=== PATIENT | female | born 1980 | race Caucasian/White ===

== ENCOUNTER 2016-09-15 18:30 | Emergency (ER) | payer OTHER ==
[~2016-09-15] VITALS: Ht 167.6 cm; Wt 113.0 kg
[~2016-09-15 18:30] MED LIST: AMOX-366 PO; AZIT250T4 PO; CITA10TA9 PO; HYDR-3090 PO; HYDR-4003 PO; IBUP800T28 PO; MELO-259 PO; NAPR500T PO; ONDA8TAB10 PO
[2016-09-15 18:32] VITALS: BP 129/91; PULSE 93; RESP 20; O2SAT 99
--- NOTE | 2016-09-15 19:02 | ED.REPORT ---
HPI-URI / Cough / Cold Date of Service Sep 15, 2016 ED Provider: Otherwise healthy 35-year-old female presents with a 2 day history of sore throat, fever, myalgia. Denies cough, wheeze, shortness of breath, abdominal pain, vomiting. Treating herself with Tylenol. History of strep throat. Nursing Notes Stated Complaint: SORE THROAT Chief Complaint: FLU/Cold Symptoms Nursing Notes Reviewed: Yes Allergies: Coded Allergies: No Known Allergies (Verified Allergy, Unknown, 11/16/15) Scheduled Amoxicillin/Clav K 875-125 mg (Augmentin 875-125 mg) 1 Each Tablet 1 TABLET PO BID Azithromycin (Zithromax (Z-Dangelo)) 250 Mg Tablet 250 MG PO DAILY 2 now, then one daily for 4 more days Citalopram (Citalopram) 10 Mg Tablet 10 MG PO DAILY Meloxicam (Meloxicam) 7.5 Mg Tablet 7.5 MG PO DAILY Penicillin V Potassium (Penicillin V Potassium) 500 Mg Tablet 500 MG PO BID Scheduled PRN Hydrocodone-Acetaminophen 5-300 mg (Hydrocodone-Acetaminophen 5-300 mg) 1 Each Tablet 1 TABLET PO Q4H PRN PRN For Cough Hydrocodone-Acetaminophen 5-325 mg (Hydrocodone-Acetaminophen 5-325 mg) 1 Each Tablet 1-2 TABLET PO Q4H PRN PRN For Pain Ibuprofen (Ibuprofen) 800 Mg Tablet 800 MG PO TID PRN PRN For Pain Naproxen (Naprosyn) 500 Mg Tablet 500 MG PO BID PRN PRN For Pain Ondansetron ODT (Ondansetron ODT) 8 Mg Tab.rapdis 8 MG PO Q4H PRN PRN na General Time Seen by MD: 18:55 Chief Complaint Sore throat Past Medical History Past Medical History Colitis Cervical erosion Back/hip problems osteoarthritis Anxiety, ADHD Reports: Asthma Past Surgical History Knee surgery LEEP procedure Smoking History Current Every Day Smoker Social History Mother Alcohol Use: Denies alcohol use Drug Use: Denies drug use, THC Other Social History: Good social support, Lives with children Ambulatory Status Independent Review of Systems Negative unless stated otherwise in history of present illness Physical Exam General: Well appearing, well developed, well nourished, no acute distress. Head: Atraumatic, normocephalic. No mastoid tenderness. Eyes: No scleral icterus or injection. No discharge. PERRL. Vision grossly intact. Ears: Pinna and tragus nontender with manipulation. External auditory canal patent, atraumatic and without discharge. Tympanic membrane castrejon, shiny and translucent without fluid, bulging, retraction or perforation. Hearing grossly intact. Nose: Symmetrical, nares patent without discharge. No frontal or maxillary sinus tenderness. Mouth/pharynx: normal dentition, mucus membranes moist. Tonsils 2+ and symmetrical with exudate, uvula midline. Pharynx injected, no cobblestoning. Voice is hoarse. Neck: Tender anterior lymphadenopathy. Trachea midline. Respiratory: Regular rate and rhythm. Breath sounds present, clear to auscultation and equal bilaterally. No respiratory distress. No increased work of breathing, speaks in complete sentences. Cardiovascular: Regular rate and rhythm, without murmur, gallop or rub. No pedal edema. Gastrointestinal: Abdomen flat and non-tender without guarding or rebound. Bowel sounds normoactive. Skin: Warm and dry. Neurological: Grossly nonfocal. Psychological: Alert and oriented. Speech appropriate, linear and logical. Behavior appropriate. Initial Vital Signs Initial VS: Reviewed, Vital signs normal Interpretation & Diagnostics Interpretation & Diagnostics: Rapid strep positive Re-Eval/Medical Decision Med Decision/Clinical Course Otherwise healthy 35-year-old female with a 2 day history of sore throat and fever. Pharynx injected with exudate, symmetrical, voice hoarse. Rapid strep positive. I believe this is strep pharyngitis rather than peritonsillar abscess , retropharyngeal abscess, Felix's angina, epiglottitis. Gave A prescription for 500 mg penicillin twice a day 10 days, [id number] analgesia, primary care follow-up and return precautions. Patient understands and is comfortable with the plan Discharge & Departure Impression: Primary Impression: Strep pharyngitis Disposition: Home Discharge Condition All VS Reviewed: Yes Condition: Stable Patient Instructions: Strep Throat (ED) Additional Instructions: Evaluation for sore throat the emergency department. History and physical exam are suggestive of strep throat, which has been confirmed with a rapid strep test. The treatment for this is 500 mg of penicillin taken twice a day for 10 days. This is best taken with food. The pain is best treated with 400 mg of ibuprofen (Advil, Motrin) every 6 hours, or 1000 mg of acetaminophen (Tylenol) every 6 hours. These drugs can be taken at the same time for more severe pain. Follow-up with your primary care physician if her symptoms have not significantly improved in a week. Return to emergency department for new or worsening symptoms including increasing pain, swelling in her throat, difficulty breathing or swallowing. Referrals: ZOLTAN CAMP MD (PCP) EDSupervising Provider for APC: Petros Mariee MD copies to: ZOLTAN CAMP MD, Seth PA-C Sep 15, 2016 19:02 EDSupervising Provider for APC: Petros Mariee MD copies to: ZOLTAN CAMP MD, Seth PA-C Sep 15, 2016 19:02
[2016-09-15] MEDS ORDERED: PENI500T PO (19:15)
[2016-09-15 19:20] VITALS: BP 129/91; PULSE 93; RESP 20; O2SAT 99
== END 2016-09-15 19:20 | disposition home or self-care (01) ==
LOC: SED 18:30
DX: J02.0 Streptococcal pharyngitis (principal); J45.909 Unspecified asthma, uncomplicated; F90.9 Attention-deficit hyperactivity disorder, unspecified type; F17.200 Nicotine dependence, unspecified, uncomplicated

== ENCOUNTER 2017-02-13 13:00 | Emergency (ER) | payer OTHER ==
[~2017-02-13] VITALS: Ht 167.6 cm; Wt 118.0 kg
[~2017-02-13 13:00] MED LIST changes: +PENI500T PO
[2017-02-13 13:01] VITALS: BP 148/84; PULSE 105; RESP 17; O2SAT 98
--- NOTE | 2017-02-13 13:06 | ED.REPORT ---
HPI-General Illness Date of Service Feb 13, 2017 ED Provider: Salvador Boone MD Patient is a 36 year old female with a history of colitis, anxiety, back/hip problems and cervical erosion who presents to the ED with an abscess to the left buttock that first appeared a few days ago. Associated symptoms include recent subjective fever and chills. Patient took 1 Tylenol this morning with little relief. She is currently expressing concern that the area is a spider bite. Patient denies any other abscesses of affected areas. Nursing Notes Stated Complaint: POSSIBLE SPIDER BITE Chief Complaint: Skin Rash/Abscess Nursing Notes Reviewed: Yes Allergies: Coded Allergies: No Known Allergies (Verified Allergy, Unknown, 11/16/15) Scheduled Amoxicillin/Clav K 875-125 mg (Augmentin 875-125 mg) 1 Each Tablet 1 TABLET PO BID Azithromycin (Zithromax (Z-Dangelo)) 250 Mg Tablet 250 MG PO DAILY 2 now, then one daily for 4 more days Cephalexin (Keflex) 500 Mg Capsule 500 MG PO QID Citalopram (Citalopram) 10 Mg Tablet 10 MG PO DAILY Meloxicam (Meloxicam) 7.5 Mg Tablet 7.5 MG PO DAILY Penicillin V Potassium (Penicillin V Potassium) 500 Mg Tablet 500 MG PO BID Sulfamethoxazole/Trimeth 800-160 mg (Bactrim DS) 1 Each Tablet 1 TABLET PO BID Scheduled PRN Hydrocodone-Acetaminophen 5-300 mg (Hydrocodone-Acetaminophen 5-300 mg) 1 Each Tablet 1 TABLET PO Q4H PRN PRN For Cough Hydrocodone-Acetaminophen 5-325 mg (Hydrocodone-Acetaminophen 5-325 mg) 1 Each Tablet 1-2 TABLET PO Q4H PRN PRN For Pain Hydrocodone-Acetaminophen 5-325 mg (Hydrocodone-Acetaminophen 5-325 mg) 1 Each Tablet 1 TABLET PO Q4H PRN PRN For Pain Ibuprofen (Ibuprofen) 800 Mg Tablet 800 MG PO TID PRN PRN For Pain Naproxen (Naprosyn) 500 Mg Tablet 500 MG PO BID PRN PRN For Pain Ondansetron ODT (Ondansetron ODT) 8 Mg Tab.rapdis 8 MG PO Q4H PRN PRN na General Time Seen by : 13:04 Chief Complaint Other (Abscess) Hx Obtained From: Patient Arrived By: Walk-in Sudden in Onset?: No Symptom Duration: Since onset Associated with: Reports: Fever, Rash Pertinent Negative: Pt denies other symptoms Recent Healthcare: No recent doctor visit, No recent hospitalization Past Medical History Past Medical History Colitis Cervical erosion Back/hip problems osteoarthritis Anxiety, ADHD Reports: Asthma Past Surgical History Knee surgery LEEP procedure Smoking History Current Every Day Smoker Social History Alcohol Use: Denies alcohol use Drug Use: Denies drug use, THC Other Social History: Good social support, Lives with children Ambulatory Status Independent Review of Systems Full Review of Systems Constitutional: Reports: Chills, Fever Skin: Reports Rash (abscess) Complete sys rev & neg: except as marked. Physical Exam Vital Signs Vital Signs Date Time Temp Pulse Resp B/P Pulse Ox O2 Delivery O2 Flow Rate FiO2 02/13/17 14:53 36.7 73 16 126/81 97 Room Air 02/13/17 13:01 36.9 105 17 148/84 98 Room Air Initial VS: Reviewed Head / Eyes: Atraumatic, Normocephalic, PERRL Neck: Supple, Non-tender, Full range of motion Extremities: Vascular intact, Neuro intact, No swelling, No tenderness Neurologic: Alert, Oriented, Nonfocal Psychiatric: Mood/affect normal, Behavior normal, Normal thought content General/Constitutional: Awake, Alert, No acute distress, Well appearing, Well developed Head / Eyes: Atraumatic, Normocephalic, PERRL Respiratory / Chest: Atraumatic, Breath sounds NL, Breath sounds = bilat, No respiratory distress Cardiovascular: Heart rate NL, Regular rhythm, Heart sounds NL, No gallop, No murmurs, No rubs Abdomen: Atraumatic, Soft, Non-tender, No distention Skin: Atraumatic, Color NL, Warm, Dry Abscess Notes: ABSCESS: Left medial abscess - 2 cm x 2 cm area of erythema with induratuon and fluctuance Does no extend to the anal ridge Abscess #1 Location/Condition: Positive: Buttock L..., Erythema surrounding, Fluctuant, Indurated Procedures Incision & Drainage Abscess Time: 13:55 Procedure Performed by: Allied health pract Consent / Setup / Site Prep: Consent from patient, Time-out performed, Hand hygiene observed, Stand sterile technique, Standard surgical scrub, Sterile drapes applied Skin Preparation Agent: Normal saline Local Anesthesia: Lidocaine w epi 1% Incised Abscess with Scalpel: #15 Pus Drained: Small, Purulent discharge Irrigation: Yes, Copious Post-Procedure / Complications: Packing placed, Culture obtained, Gram stain ordered, Dressing applied, No complications, Condition improved, Tolerated procedure well, Patient stable Re-Eval/Medical Decision Time of Eval: 13:55 Patient Status: Condition improved Re-Evaluation/Progress Note: Patient is rechecked. Abscess is drained. Pt tolerates the procedure well. Discussed intended treatment plan. All of the pateint's questions are addressed. She understands and agrees with the treatment plan. Counseled Regarding: Diagnosis, Need for follow-up, When/why to return to ED Discharge & Departure Primary Impression: Abscess Disposition: Home Discharge Condition All VS Reviewed: Yes Condition: Improved Patient Instructions: Abscess (ED) Additional Instructions: Thank you for seeking care at emergency room. It is difficult for us to make definitive diagnoses in the ED but we believe that you are experiencing an abscess likely due to an ingrown hair. We performed an I & D in the emergency department. You tolerated the procedure very well. Take the full course of Bactrim and Keflex for the next 7-10 days. Use a warm compress on the area for the next week or so. Our primary goal today in the ED was to evaluate you for any life-threatening conditions. Your evaluation was reassuring. You should follow-up with your primary doctor in the next week. You should return to the ED immediately if you develop high fevers, shaking chills, vomiting, worsening pain, swelling, redness, pustule drainage or any other concerning signs or symptoms. Referrals: ZOLTAN CAMP MD (PCP) Scribe Attestation Portions of this note were transcribed by Ritu Trivedi. I, Dr. Boone personally performed the history, physical exam and medical decision-making; I reviewed and confirmed the accuracy of the information in the transcribed note. Signed by: Cecy Arellano, 02/13/17 [id number]. copies to: ZOLTAN CAMP MD, Beck O MD Feb 13, 2017 13:06 RITU TRIVEDI Feb 13, 2017 13:14 Lesvia Vu Feb 13, 2017 14:32
[2017-02-13] MEDS ORDERED: SULF1TAB7 PO (13:37)
[2017-02-13] MEDS ORDERED: CEPH-512 PO (13:37)
[2017-02-13] MEDS ORDERED: HYDR-4003 PO (14:43)
[2017-02-13 14:53] VITALS: BP 126/81; PULSE 73; RESP 16; O2SAT 97
== END 2017-02-13 14:45 | disposition home or self-care (01) ==
LOC: SED 13:00
DX: L02.31 Cutaneous abscess of buttock (principal); J45.909 Unspecified asthma, uncomplicated; F41.9 Anxiety disorder, unspecified; F90.9 Attention-deficit hyperactivity disorder, unspecified type; F17.200 Nicotine dependence, unspecified, uncomplicated

== ENCOUNTER 2017-02-15 14:44 | Emergency (ER) | payer OTHER ==
[~2017-02-15] VITALS: Ht 167.6 cm; Wt 118.2 kg
[~2017-02-15 14:44] MED LIST changes: +CEPH-512 PO; +SULF1TAB7 PO
[2017-02-15 14:47] VITALS: BP 136/84; PULSE 97; RESP 20; O2SAT 98
--- NOTE | 2017-02-15 17:55 | ED.REPORT ---
HPI-Recheck W/B/S Date of Service Feb 15, 2017 ED Provider: Darrel Fonseca PAC History of Present Illness: 36yo female 2 days s/p R buttock abscess I&D, here for packing removal/recheck. She's been compliant with meds, packing is still in place, pain much reduced. Nursing Notes Stated Complaint: WOUND PACKING CHANGED Chief Complaint: Skin Rash/Abscess Allergies: Coded Allergies: No Known Allergies (Verified Allergy, Unknown, 11/16/15) Scheduled Amoxicillin/Clav K 875-125 mg (Augmentin 875-125 mg) 1 Each Tablet 1 TABLET PO BID Azithromycin (Zithromax (Z-Dangelo)) 250 Mg Tablet 250 MG PO DAILY 2 now, then one daily for 4 more days Cephalexin (Keflex) 500 Mg Capsule 500 MG PO QID Citalopram (Citalopram) 10 Mg Tablet 10 MG PO DAILY Meloxicam (Meloxicam) 7.5 Mg Tablet 7.5 MG PO DAILY Penicillin V Potassium (Penicillin V Potassium) 500 Mg Tablet 500 MG PO BID Sulfamethoxazole/Trimeth 800-160 mg (Bactrim DS) 1 Each Tablet 1 TABLET PO BID Scheduled PRN Hydrocodone-Acetaminophen 5-300 mg (Hydrocodone-Acetaminophen 5-300 mg) 1 Each Tablet 1 TABLET PO Q4H PRN PRN For Cough Hydrocodone-Acetaminophen 5-325 mg (Hydrocodone-Acetaminophen 5-325 mg) 1 Each Tablet 1-2 TABLET PO Q4H PRN PRN For Pain Hydrocodone-Acetaminophen 5-325 mg (Hydrocodone-Acetaminophen 5-325 mg) 1 Each Tablet 1 TABLET PO Q4H PRN PRN For Pain Ibuprofen (Ibuprofen) 800 Mg Tablet 800 MG PO TID PRN PRN For Pain Naproxen (Naprosyn) 500 Mg Tablet 500 MG PO BID PRN PRN For Pain Ondansetron ODT (Ondansetron ODT) 8 Mg Tab.rapdis 8 MG PO Q4H PRN PRN na General Time Seen by Provider: 17:40 Chief Complaint Wound check Prior Tx of Wound / Injury: Antibiotics, oral, Incision & drainage, Wound packed Hx Obtained From: Patient Arrived By: Walk-in Onset Occurred: 2 days ago Progression Since Onset: Rapidly improving Location: R buttock Severity: Current: No pain currently Severity: Maximum: Severe Associated with: Denies: Chills, Discharge from wound, Fever Pertinent Negative: Pt denies other symptoms Recent Healthcare: Recent doctor visit, Previous diagnosis Past Medical History Past Medical History Colitis Cervical erosion Back/hip problems osteoarthritis Anxiety, ADHD Reports: Asthma Past Surgical History Knee surgery LEEP procedure Smoking History Current Every Day Smoker Social History Alcohol Use: Denies alcohol use Drug Use: Denies drug use, THC Other Social History: Good social support, Lives with children Ambulatory Status Independent Review of Systems Basic Review of Systems Respiratory: No shortness of breath Cardiovascular: No chest pain GI: No abdominal pain Constitutional: Denies: Chills, Fever Skin: Reports Rash (R buttock abscess), Denies Swelling Physical Exam Initial Vital Signs Vital Signs (First) Date Time Temp Pulse Resp B/P Pulse Ox O2 Delivery O2 Flow Rate FiO2 02/15/17 14:47 36.9 97 20 136/84 98 Room Air Initial VS: Vital signs normal Rash / Lesion Notes: R buttock abscess, healing nicely. No drainage, cellulitis, or induration. Rash / Lesion Location: Positive: Buttocks Abscess #1 Location/Condition: Positive: Buttock R... General/Constitutional: Awake, Alert, No acute distress, Not toxic appearing Procedures Procedure Notes: Removed packing, flushed R buttock abscess with warm water. Reiserted 1/2" iodoform packing. Feminine napkin dressing applied. Skin: Wound / Burn Check Normal Wound / Burn Check: Healing well, No apparent infection, No discharge , No abscess / fluctuance Packing: Present, Packing removed, New packing inserted Re-Eval/Medical Decision Med Decision/Clinical Course Pt's R buttock abscess is healing nicely. Advised recheck once more on 02/17 with PCP. Counseled Regarding: Diagnosis, Need for follow-up, When/why to return to ED Discharge & Departure Impression: Primary Impression: Abscess of buttock Disposition: Home Patient Instructions: Abscess Follow-up (ED) Additional Instructions: Finish antibiotics as previously prescribed. Follow up with your PCP on 02/17 for recheck, packing removal. I suspect today's packing will be the last round of packing. Return to ER if any problems or in difficulty getting zana appointment with your PCP. Referrals: ZOLTAN CAMP MD (PCP) 2-3 days recheck abscess EDSupervising Provider for APC: Wojciech Mendiola Christopher R PAC Feb 15, 2017 17:55
[2017-02-15 18:12] VITALS: BP 113/62; PULSE 82; O2SAT 96
== END 2017-02-15 18:13 | disposition home or self-care (01) ==
LOC: SED 14:44
DX: L02.31 Cutaneous abscess of buttock (principal); Z48.01 Encounter for change or removal of surgical wound dressing; J45.909 Unspecified asthma, uncomplicated; F17.200 Nicotine dependence, unspecified, uncomplicated

== ENCOUNTER 2017-02-19 11:16 | Emergency (ER) | payer OTHER ==
[2017-02-19 11:22] VITALS: BP 135/89; PULSE 117; RESP 16; O2SAT 99
--- NOTE | 2017-02-19 11:58 | ED.REPORT ---
HPI-Rash / Abscess Date of Service Feb 19, 2017 ED Provider: Alf Cuevas MD Patient is a 36 year old female with a history of colitis, anxiety, back/hip problems and cervical erosion who presents to the ED for wound check. She had an abscess of her inner left buttock that underwent incision and drainage on . The packing fell out this morning. She has had resolution of the acute pain though still does experience some discomfort. She is not feeling any fever or chills. She is not having shortness of breath, or associated wounds. Nursing Notes Stated Complaint: WOUND RECHECK Chief Complaint: Wound Recheck/Suture Removal Nursing Notes Reviewed: Yes Allergies: Coded Allergies: No Known Allergies (Verified Allergy, Unknown, 02/19/17) Scheduled Amoxicillin/Clav K 875-125 mg (Augmentin 875-125 mg) 1 Each Tablet 1 TABLET PO BID Azithromycin (Zithromax (Z-Dangelo)) 250 Mg Tablet 250 MG PO DAILY 2 now, then one daily for 4 more days Cephalexin (Keflex) 500 Mg Capsule 500 MG PO QID Citalopram (Citalopram) 10 Mg Tablet 10 MG PO DAILY Meloxicam (Meloxicam) 7.5 Mg Tablet 7.5 MG PO DAILY Penicillin V Potassium (Penicillin V Potassium) 500 Mg Tablet 500 MG PO BID Sulfamethoxazole/Trimeth 800-160 mg (Bactrim DS) 1 Each Tablet 1 TABLET PO BID Scheduled PRN Hydrocodone-Acetaminophen 5-300 mg (Hydrocodone-Acetaminophen 5-300 mg) 1 Each Tablet 1 TABLET PO Q4H PRN PRN For Cough Hydrocodone-Acetaminophen 5-325 mg (Hydrocodone-Acetaminophen 5-325 mg) 1 Each Tablet 1-2 TABLET PO Q4H PRN PRN For Pain Hydrocodone-Acetaminophen 5-325 mg (Hydrocodone-Acetaminophen 5-325 mg) 1 Each Tablet 1 TABLET PO Q4H PRN PRN For Pain Ibuprofen (Ibuprofen) 800 Mg Tablet 800 MG PO TID PRN PRN For Pain Naproxen (Naprosyn) 500 Mg Tablet 500 MG PO BID PRN PRN For Pain Ondansetron ODT (Ondansetron ODT) 8 Mg Tab.rapdis 8 MG PO Q4H PRN PRN na General Time Seen by MD: 11:24 Chief Complaint Other (wound check) Hx Obtained From: Patient Arrived By: Walk-in Past Medical History Past Medical History Colitis Cervical erosion Back/hip problems osteoarthritis Anxiety, ADHD Reports: Asthma Past Surgical History Knee surgery LEEP procedure Family History Noncontributory Smoking History Current Every Day Smoker Social History Alcohol Use: Denies alcohol use Drug Use: Denies drug use, THC Other Social History: Good social support, Lives with children Ambulatory Status Independent Review of Systems A comprehensive review of systems was conducted with the patient and found to be negative except as above in the History of Present Illness. Physical Exam Initial Vital Signs Vital Signs (First) Date Time Temp Pulse Resp B/P Pulse Ox O2 Delivery O2 Flow Rate FiO2 02/19/17 11:22 36.8 117 16 135/89 99 Room Air Initial VS: Reviewed Head / Eyes: Atraumatic, Normocephalic ENT: Mucous membranes moist, Conjunctiva normal, No scleral icterus Neck: Supple Respiratory: No respiratory distress Cardiovascular: Regular rate & rhythm Lymphatic: No lymphadenopathy Extremities: Vascular intact, Neuro intact, No swelling Neurologic: Alert, Oriented Psychiatric: Mood/affect normal, Behavior normal, Normal thought content Re-Eval/Medical Decision Med Decision/Clinical Course Patient is a 36 year old female with a history of colitis, anxiety, back/hip problems and cervical erosion who presents to the ED with a clean and dry incision on inner left buttock. Patient is afebrile and hemodynamically stable. PE shows no sign of infection, wound is healing well. Patient is to continue with Rx of Bactrim/Keflex. She took her last dose of Vicodin this morning she will try ibuprofen for pain control. She was instructed to return if any evidence of worsening infection. Followup and return precautions provided in detail. Pt verbalized understanding an agreement with plan. Discharge & Departure Impression: Primary Impression: Abscess of buttock Disposition: Home Discharge Condition All VS Reviewed: Yes Condition: Stable Patient Instructions: Sitz Bath (GEN) Additional Instructions: Thank you for entrusting us with her care today. You are doing a great job of healing this wound. Take sitz baths twice per day. Finish your antibiotic Take [id number] medication for pain as directed on the bottle. Follow-up with your primary care provider within the next 2 weeks to make sure area has healed. Return to the emergency department if it becomes inflamed, swollen, or increasingly painful. Referrals: ZOLTAN CAMP MD (PCP) EDSupervising Provider for APC: Alf Cuevas MD Attending Statement I discussed patient with resident . I evaluated the patient independently and agree with plan as above. In brief, 36-year-old female with right buttocks abscess now 7 days status post incision and drainage. She has been changing packing. She is here for packing removal. At this time the wound is very well healing with a 2 mm opening with no surrounding erythema or discharge or fluctuance. At this point we can discontinue the packing changes and recommend twice a day sitz baths, wash with soap and water and return precautions if any new or worsening symptoms signs infection including redness, swelling, discharge , fevers, nausea vomiting, any other worsening symptoms. Alf Cuevas MD Feb 19, 2017 11:58 Mildred Gonzalez DO Feb 19, 2017 12:29
== END 2017-02-19 12:38 | disposition home or self-care (01) ==
LOC: SED 11:16
DX: L02.31 Cutaneous abscess of buttock (principal); F17.200 Nicotine dependence, unspecified, uncomplicated; F90.9 Attention-deficit hyperactivity disorder, unspecified type; J45.909 Unspecified asthma, uncomplicated; Z87.19 Personal history of other diseases of the digestive system